=== PATIENT | male | born 1960 | race Caucasian/White ===

== ENCOUNTER 2017-04-21 06:03 | Observation (INO) | payer BC ==
[2017-04-21] MEDS ORDERED: ETOMIDATE 20 MG INJ ×3 (06:40→07:28)
[2017-04-21] MEDS ORDERED: EPHEDrine SULFATE 50 MG/5 ML SYG ×2 (06:40→06:42)
[2017-04-21] MEDS ORDERED: PHENYLephrine (100 MCG/ML) 5ML SYG (06:40)
[2017-04-21] MEDS ORDERED: PROPOFOL 20 ML (06:43)
[2017-04-21] MEDS ORDERED: LIDOCAINE 1% (MDV) 20 ML INJ (06:44)
[2017-04-21 06:54] LABS: ADD MAN DIFF? NO
[2017-04-21 06:57] LABS: WHITE BLOOD COUNT 6.1 10^3/ul (4.8-10.8)
[2017-04-21 06:58] LABS: BASOPHIL # 0.1 10^3/ul (0.0-0.1); BASOPHILS % 1.1 % (0.0-2.0); EOSINOPHILS # 0.1 10^3/ul (0.0-0.5); EOSINOPHILS % 2.1 % (0.0-7.0); HEMATOCRIT 42.8 % (42.0-52.0); HEMOGLOBIN 14.3 g/dl (14.0-18.0); LYMPHOCYTES # 1.6 10^3/ul (0.8-2.9); LYMPHOCYTES % 25.8 % (15.0-51.0); MEAN CORPUSCULAR HGB CONC 33.4 g/dl (32.0-37.0); MEAN CORPUSCULAR VOLUME 86.8 fl (82.0-101.0); MEAN PLATELET VOLUME 11.7 fl (7.4-10.4); MONOCYTE # 0.5 10^3/ul (0.3-0.9); MONOCYTES % 8.9 % (0.0-11.0); NEUTROPHIL # 3.8 10^3/ul (1.6-7.5); NEUTROPHILS % 61.9 % (39.0-77.0); PLATELET COUNT 176 10^3/UL (140-415); RED BLOOD COUNT 4.93 10^6/ul (4.70-6.10); RED CELL DISTRIBUTION WIDTH 14.2 % (11.5-14.5)
[2017-04-21] MEDS ORDERED: CEFAZOLIN 2 GM/50 ML (PMX) IVPB (07:00)
[2017-04-21] MEDS ORDERED: MIDAZOLAM 1 MG/ML 2 ML INJ (07:10)
[2017-04-21] MEDS ORDERED: FENTAnyl 50 MCG/ML VIAL (07:11)
[2017-04-21 07:18] LABS: INR 1.47; PROTIME 18.1 Sec (11.9-14.9); PT RATIO 1.4
[2017-04-21 07:26] LABS: ANION GAP 16 (8-16); CARBON DIOXIDE 25 mmol/L (21-31); CHLORIDE 106 mmol/L (97-110); GLUCOSE 92 mg/dl (70-220)
[2017-04-21] MEDS ORDERED: PROPOFOL 40 ML (07:28)
[2017-04-21 07:31] LABS: BLOOD UREA NITROGEN 36 mg/dl (7-20); CALCIUM 8.9 mg/dl (8.4-10.2); CREATININE 1.17 mg/dl (0.61-1.24); POTASSIUM 3.7 mmol/L (3.5-5.1); SODIUM 143 mmol/L (135-144)
[2017-04-21] MEDS ORDERED: BUPIVACAINE 0.5% (SDV) 30 ML INJ (07:32)
[2017-04-21] MEDS ORDERED: IODIXANOL LOCM 50 ML BTL (07:32)
[2017-04-21 07:40] LABS: PARTIAL THROMBOPLASTIN TIME 42.8 Sec (25.0-35.0)
[2017-04-21] MEDS: POLYMYXIN/BACITRACIN 1L IRRIG IRR (08:00)
[2017-04-21] MEDS: CEFAZOLIN 1 GM/50 ML (PMX) 50 ML IVPB ×3 (08:05→22:24)
[2017-04-21] MEDS ORDERED: CEFAZOLIN 2 GM/50 ML (PMX) 50 ML IVPB (09:02)
[2017-04-21] MEDS ORDERED: HYDROCODONE/APAP (5/325) TAB PO (11:00)
[2017-04-21] MEDS ORDERED: ONDANSETRON 4 MG INJ IV (12:00)
[2017-04-21] MEDS: morphine 2 MG INJ IV (12:35)
[2017-04-21] MEDS: SOD CHLORIDE 0.9% 1,000 ML IV (12:35)
[2017-04-21] MEDS ORDERED: [UNRECOGNIZED DRUG - REMARK] XX (13:00)
[2017-04-21] MEDS: DIPHENHYDRAMINE 50 MG INJ IV (13:00)
[2017-04-21] MEDS ORDERED: morphine 2 MG INJ IV (13:30)
[2017-04-21] MEDS: ENTRESTO PO ×2 (14:37→21:00)
[2017-04-21] MEDS: FAMOTIDINE 20 MG TAB PO (22:23)
[2017-04-21] MEDS: DOCUSATE SODIUM 100 MG CAP PO (22:24)
[2017-04-22] MEDS: ACETAMINOPHEN 325 MG TAB PO (04:52)
[2017-04-22] MEDS: CEFAZOLIN 1 GM/50 ML (PMX) 50 ML IVPB (05:42)
[2017-04-22 07:16] LABS: ADD MAN DIFF? NO
[2017-04-22 07:25] LABS: BASOPHIL # 0.1 10^3/ul (0.0-0.1); BASOPHILS % 1.2 % (0.0-2.0); EOSINOPHILS # 0.1 10^3/ul (0.0-0.5); EOSINOPHILS % 1.2 % (0.0-7.0); HEMATOCRIT 44.9 % (42.0-52.0); HEMOGLOBIN 14.7 g/dl (14.0-18.0); LYMPHOCYTES # 1.6 10^3/ul (0.8-2.9); LYMPHOCYTES % 21.7 % (15.0-51.0); MEAN CORPUSCULAR HEMOGLOBIN 28.4 pg (29.0-33.0); MEAN CORPUSCULAR HGB CONC 32.7 g/dl (32.0-37.0); MEAN CORPUSCULAR VOLUME 86.8 fl (82.0-101.0); MEAN PLATELET VOLUME 11.7 fl (7.4-10.4); MONOCYTE # 0.7 10^3/ul (0.3-0.9); MONOCYTES % 9.2 % (0.0-11.0); NEUTROPHILS % 66.4 % (39.0-77.0); PLATELET COUNT 200 10^3/UL (140-415); RED BLOOD COUNT 5.17 10^6/ul (4.70-6.10); RED CELL DISTRIBUTION WIDTH 14.1 % (11.5-14.5)
[2017-04-22 07:25] LABS: WHITE BLOOD COUNT 7.5 10^3/ul (4.8-10.8)
[2017-04-22 07:53] LABS: ANION GAP 16 (8-16); BLOOD UREA NITROGEN 33 mg/dl (7-20); CALCIUM 8.9 mg/dl (8.4-10.2); CARBON DIOXIDE 24 mmol/L (21-31); CHLORIDE 105 mmol/L (97-110); CREATININE 1.14 mg/dl (0.61-1.24); GLUCOSE 93 mg/dl (70-220); POTASSIUM 3.7 mmol/L (3.5-5.1); SODIUM 141 mmol/L (135-144)
[2017-04-22] MEDS: ENTRESTO PO (08:27)
[2017-04-22] MEDS: FUROSEMIDE 40 MG TAB PO (08:28)
[2017-04-22] MEDS: FAMOTIDINE 20 MG TAB PO (08:29)
[2017-04-22] MEDS: DOCUSATE SODIUM 100 MG CAP PO (08:29)
[2017-04-22] MEDS: HYDROCODONE/APAP (5/325) TAB PO (15:58)
== END 2017-04-22 17:20 | disposition home or self-care (01) ==
LOC: SDS 06:03 → REC 10:09 → TEL 20:00
DX: I42.9 Cardiomyopathy, unspecified (principal); I50.9 Heart failure, unspecified; I10 Essential (primary) hypertension; I49.3 Ventricular premature depolarization; I34.0 Nonrheumatic mitral (valve) insufficiency; I37.1 Nonrheumatic pulmonary valve insufficiency; Z87.891 Personal history of nicotine dependence; Z87.01 Personal history of pneumonia (recurrent)
CPT/HCPCS: 33249; 71045; 80048; 83735; 85025; 85610; 85730; 93005; 99217